=== PATIENT | male | born 1960 | race Caucasian/White ===

== ENCOUNTER 2017-08-12 11:49 | Outpatient (CLI) | payer MEDICARE, MEDICAID ==
--- NOTE | 2017-08-12 14:57 | Diagnostic Imaging Report ---
Indication: Dyspnea Comparison: None 2 views of the chest obtained. The interstitium of the lungs prominent bilaterally. Heart size is normal. The bones are unremarkable. Impression: Prominence of the pulmonary interstitium nonspecific. Mild edema is not excluded
== END 2017-08-12 13:49 | disposition home or self-care (01) ==
LOC: RAD 11:49
DX: R05 Cough (principal); R06.00 Dyspnea, unspecified
CPT/HCPCS: 71020